=== PATIENT | female | born 1995 | race Caucasian/White ===

== ENCOUNTER 2019-07-07 08:26 | Emergency (ER) | payer OTHER, BC ==
[~2019-07-07] VITALS: Ht 177.8 cm; Wt 98.1 kg
[2019-07-07] MEDS ORDERED: PLAQ200T4 PO (08:41)
[2019-07-07] MEDS ORDERED: METH2.5T48 PO (08:41)
[2019-07-07] MEDS ORDERED: vitamin d (08:41)
[2019-07-07] MEDS ORDERED: ACETAMINOPHEN TAB 650MG DOSE (2X325MG) PO ONE (09:45)
--- NOTE | 2019-07-07 10:24 | REP ---
PA and lateral chest: There are no comparisons. There is no pneumothorax, hemothorax or pulmonary contusion. Lung aldrich are clear. The cardiac size is normal per The [place], mediastinum, skeletal structures are unremarkable. Impression: Negative PA and lateral chest. Electronically Signed by Brodie Balbuena MD 07/07/2019 10:16 A
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
--- NOTE | 2019-07-07 11:04 | REP ---
CT BRAIN WITHOUT CONTRAST: CT brain performed without IV contrast. Coronal reconstruction images are performed. The ventricles are normal in size and position with no midline shift or mass effect. Perez/white differentiation is well maintained. There is no acute intracranial hemorrhage or extra-axial fluid collection. There is no skull fracture identified. There is diffuse complete opacification of the frontal sinuses bilaterally. There is moderate opacification of bilateral ethmoid sinuses. Visualized right maxillary sinus is completely opacified. There is mild mucosal thickening in the left maxillary sinus. There is moderate opacification of the right sphenoid sinus. There is thickening of the nasal turbinates. IMPRESSION: No evidence of acute intracranial hemorrhage or skull fracture. Significant diffuse sinusitis. Electronically Signed by Brodie Perez MD 07/08/2019 01:29 P
[2019-07-07 12:09] VITALS: BP 132/70
[2019-07-07] MEDS ORDERED: NS 1,000 ML IV ONE (12:30)
[2019-07-07] MEDS ORDERED: MORPHINE 4 MG/ML 1ML VIAL/SYRINGE (J2270) IV ONE (12:30)
[2019-07-07] MEDS ORDERED: ONDANSETRON 4MG/2ML VIAL (J2405) IV ONE (12:30)
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
[2019-07-07] MEDS ORDERED: NORC1TAB7 PO (13:35)
--- NOTE | 2019-07-07 20:14 | ED PDOC ---
Post-Departure Follow-Up dr zapata faxed formal report of ct c spine for Sanjeev Alfred MD Jul 07, 2019 20:14
== END 2019-07-07 14:00 | disposition home or self-care (01) ==
LOC: M ED 08:26
DX: S12.691A Other nondisplaced fracture of seventh cervical vertebra, initial encounter for closed fracture (principal); S10.93XA Contusion of unspecified part of neck, initial encounter; V48.5XXA Car driver injured in noncollision transport accident in traffic accident, initial encounter; J32.9 Chronic sinusitis, unspecified; Z79.899 Other long term (current) drug therapy
CPT/HCPCS: 70450; 71046; 72125; 72141; 84702; 96361; 96374; 96375; 99284; J2270; J2405